=== PATIENT | female | born 1980 | race Caucasian/White ===

== ENCOUNTER 2019-12-03 11:08 | Outpatient (CLI) | payer BC ==
--- NOTE | 2019-12-03 12:30 | ULT ---
PELVIC ULTRASOUND: Date: 12/03/2019 HISTORY: Pelvic pain x2 years. FINDINGS: Real-time imaging of the pelvis was obtained both transabdominally, as well as with an endovaginal pr obe. This shows a normal sized uterus measuring 8.5 cm in length. The endometrium is in the 5.0 mm ra nge. Nabothian cysts are identified. Small follicles are seen involving the right ovary. The left adnexa is more difficult to visualize. I do not see any mass. DOPPLER EVALUATION WITH SPECTRAL ANALYSIS: Normal flow shown to the right ovary. IMPRESSION: 1. Left ovary is never definitively visualized. 2. Unremarkable appearing uterus and right ovary. POS: LEANNA
== END 2019-12-03 11:09 | disposition home or self-care (01) ==
LOC: SCSULT 11:08
PROVIDERS: ATTEND Family Medicine
DX: N93.9 Abnormal uterine and vaginal bleeding, unspecified (principal)
CPT/HCPCS: 76856